=== PATIENT | male | born 1955 | race African-American/Black ===

== ENCOUNTER 2018-06-24 01:12 | Emergency (ER) | payer MEDICARE, OTHER ==
[~2018-06-24] VITALS: Ht 182.9 cm; Wt 127.0 kg
[~2018-06-24 01:12] MED LIST: ASPI-986 PO; CALC1TAB17 PO; DILT120C9; FOLI1POW MC; HYDR-4133; HYDR100T26 PO; LISI30TA36; LOSA25TA3; LOSA50TA20 PO; METO-411; METO100T16 PO; OMEP20CA10 PO; PRAV40TA58 PO
[2018-06-24] MEDS ORDERED: MORPHINE SULFATE 4 MG/ML CPJ (NOT FOR IM USE) IV STA (02:20)
[2018-06-24] MEDS ORDERED: SODIUM CHLORIDE 0.9% 1,000 ML IV ONE (02:20)
[2018-06-24] MEDS ORDERED: ONDANSETRON HCL 4MG/2ML INJ IV STA (02:20)
[2018-06-24 03:14] LABS: HEMATOCRIT. 30.2 % (42.0-52.0); HEMOGLOBIN. 9.9 g/dL (14.0-18.0); MEAN CORPUSCULAR HEMOGLOBIN 27.9 pg (28.0-32.0); MEAN CORPUSCULAR VOLUME 85.2 fL (80.0-94.0); MEAN PLATELET VOLUME 9.7 fl (7.4-10.4); PLATELET 114 x1000/uL (130-400); RED BLOOD CELL COUNT 3.54 mill/uL (4.7-6.1); RED CELL DISTRIBUTION WIDTH 14.2 % (11.6-14.6)
[2018-06-24 03:21] LABS: CHLORIDE 100 mEq/L (98-107)
[2018-06-24 03:29] LABS: CREATINE KINASE 367 IU/L (39-308)
[2018-06-24 03:34] LABS: PARTIAL THROMBOPLASTIN TIME 74.1 sec (23.4-31.0); PROTHROMBIN TIME 53.8 sec (9.1-11.1)
[2018-06-24 03:45] LABS: INR 5.5
[2018-06-24 04:26] LABS: PLATELET ESTIMATE SLIGHTLY DECREASED
[2018-06-24] MEDS ORDERED: PHYTONADIONE 10MG/ML AMP SUBCUT ONE (05:00)
[2018-06-24 06:00] LABS: CLARITY URINE TURBID (CLEAR); COLOR URINE YELLOW (YELLOW); KETONES URINE NEGATIVE (NEGATIVE); LEUKOCYTE ESTERASE URINE 3+ (NEGATIVE); NITRITE URINE POSITIVE (NEGATIVE); OCCULT BLOOD URINE 3+ (NEGATIVE); PROTEIN URINE 1+ (NEGATIVE); UROBILINOGEN URINE 0.2 E.U./dL (0.2-1.0)
[2018-06-24 08:12] VITALS: BP 107/61
== END 2018-06-24 08:50 | disposition short-term general hospital (02) ==
LOC: ER 01:12
DX: S80.11XA Contusion of right lower leg, initial encounter (principal); D62 Acute posthemorrhagic anemia; D68.9 Coagulation defect, unspecified; E78.00 Pure hypercholesterolemia, unspecified; W18.39XA Other fall on same level, initial encounter; Y93.89 Activity, other specified; Y92.89 Other specified places as the place of occurrence of the external cause; Y99.8 Other external cause status; Z79.899 Other long term (current) drug therapy; Z79.82 Long term (current) use of aspirin; Z86.73 Personal history of transient ischemic attack (TIA), and cerebral infarction without residual deficits; Z94.0 Kidney transplant status; Z88.8 Allergy status to other drugs, medicaments and biological substances
CPT/HCPCS: 36415; 71045; 73700; 80053; 81003; 82550; 83605; 84484; 85025; 85610; 85730; 86850; 86870; 86900; 86901; 86927; 87077; 87086; 87186; 93005; 96372; 99285; J3430; J7030; J7040; P9017